=== PATIENT | female | born 1930 | race Caucasian/White ===

== ENCOUNTER → 2016-07-24 | Outpatient (CLI) | payer MEDICARE, BC ==
[~2016-07-24] MED LIST: ACETAMINOPHEN PO; ASPIRIN PO; BENADRYL PO; BONIVA150 MG PO; COUMADIN; COUMADIN PO; COUMADIN2.5 MG PO; COUMADIN5 MG PO; FOSAMAX70 MG PO; IMDUR-ER60 M3 PO; LASIX PO; LESCOL XL80 MG PO; LOVENOX; LUTEIN; METOPROLOL PO; MIACALCIN4 ML; MIDRIN CAPSULE1 CAP; PANTOPRAZOLE SO40 MG; PRAVASTATIN SOD40 MG PO; RANEXA500 MG PO; TOPROL XL; TOPROL XL PO; TYLENOL #3 PO; ZETIA
--- NOTE | ~2016-07-24 | MY11 ---
[facility] A Service of [facility] / [facility] RADIOLOGY TEXT RESULTS PATIENT: GABY LITTLE LOCATION: [facility] : [birth year] UNIT #: [id number] AGE: [address]: Kike Bynum MD SEX: F ORDER DR: [id number] [facility] [address] [place], [place] [address] [id number] O MR#: [id number] Acc #: [id number] NAME: GABY LITTLE : 1930 SEX: F STUDY DATE/TIME: 07/24/2016 11:23 UNIT: [facility] ROOM: STUDY DESCRIPTION: MY Mammogram Screening Dig [facility] Attending Physician: Kike Bynum Jr., M.D. Ordering Physician: Kike Bynum Jr., M.D. Primary Care Physician: Kike Bynum Jr., M.D. MEDICAL IMAGING REPORT This report is preliminary unless electronic signature is present EXAM Digital screening mammogram 07/24/2016, [facility]. HISTORY 85 year old woman, previous node biopsy right breast. No risk elevation. Annual screening. COMPARISON Comparison mammograms date to 01/15/2006 with most recent 05/11/2015. FINDINGS Digital imaging of each breast was completed utilizing screening protocol. Review includes FDA-approved CAD device. Breast parenchyma is predominantly fatty replaced with subareolar duct prominence again noted in each breast. Nodular opacity projecting upper outer quadrant right breast is stable. I see no suspicious mass characteristics and no suspicious microcalcifications. There is no architectural deformity. IMPRESSION Stable benign mammogram. Annual screening recommended. Patients over the age of 40 are entered into a reminder system with target due date for the next mammogram. A result letter will be sent to the patient. BIRADS: 2 Benign findings. Dictated by... Michael Bradshaw M.D. THIS IS AN ELECTRONICALLY VERIFIED REPORT Michael Bradshaw M.D. at 07/24/2016 3:31 PM DONNYB/erik [facility] A Service of [facility] / [facility] RADIOLOGY TEXT RESULTS PATIENT: GABY LITTLE LOCATION: [facility] : [birth year] UNIT #: [id number] AGE: [address]: Kike Bynum MD SEX: F ORDER DR: TD: 07/24/2016 14:36 JOB #: [id number] MEDICAL IMAGING REPORT COPY
== END | disposition home or self-care (01) ==
LOC: CWCC 10:55
DX: Z12.31 Encounter for screening mammogram for malignant neoplasm of breast (principal); Z98.890 Other specified postprocedural states
CPT/HCPCS: G0202

== ENCOUNTER → 2016-09-20 | Day surgery (SDC) | payer MEDICARE, BC ==
--- NOTE | ~2016-09-20 | OR ---
Unit #: [id number] #: [id number] Patient: GABY LITTLE [id number] [place] [id number] O MR#: [id number] NAME: GABY LITTLE ROOM: Date of Procedure: 09/20/2016 Admission Date: 09/20/2016 Surgeon: Terence Bacon M.D. : 1930 Attending Physician: Terence Bacon M.D. Primary Care Physician: Kike Bynum Jr., M.D. OPERATIVE REPORT PREOPERATIVE DIAGNOSES Dysphagia and dyspepsia. PROCEDURES PERFORMED 1. Upper gastrointestinal endoscopy and biopsy. 2. Upper gastrointestinal endoscopy and dilation with a TTS balloon. POSTOPERATIVE DIAGNOSES 1. The patient had distal esophageal stricture. This was classic benign stricture from reflux. It was dilated using an 18 to 20 mm TTS balloon. 2. Grade 2 distal erosive esophagitis. 3. Small hiatus hernia. 4. Mild prepyloric antral erosive gastritis. 5. Focal patchy erosive duodenitis. 6. Rest of examination up to third part of duodenum was normal. A biopsy was obtained from the antrum for CLOtest. RECOMMENDATIONS 1. The patient will be started on pantoprazole 40 mg p.o. daily. 2. Bridge dose of Lovenox was explained along with resumption of Coumadin tomorrow. She will be followed up in the office in 3 months' time. SEDATION USED MAC. DESCRIPTION OF PROCEDURE Following detailed explanation of the potential risks and complications of an upper endoscopy, namely perforation, bleeding, complication related to sedation, the patient was brought to GI lab, laid in the left lateral decubitus position. Lubricated tip of the Olympus video upper endoscope was passed through bite block into the proximal esophagus under direct vision. The entire esophageal mucosa was examined. The patient was noted to have distal esophageal benign stricture along with distal erosive esophagitis. The scope was then advanced in the gastric cavity after traversing a small hiatus hernia. Mucosa of the fundus, body, and antrum was examined. The patient was noted to have prepyloric antral erythema erosions, which was fairly diffuse indicating antral gastritis. Pylorus was intubated with visualization of the duodenal bulb. The latter was noted to have mild focal patchy erosive duodenitis. Second and third part of duodenum were normal. Upon withdrawal and retroflexion, incisura, cardia, and greater curve examined and biopsy obtained from the antrum for CLOtest. The scope was withdrawn in the distal esophagus. An 18 to 20 mm Unit #: [id number] #: [id number] Patient: GABY LITTLE A TTS balloon was passed through the accessory channel of the scope and step-up dilation of distal esophageal stricture was done. Minimal bleeding was noted. The area was thoroughly washed with water. Good hemostasis was achieved. The scope was then withdrawn all the way up to pharynx. No additional findings noted. The patient tolerated the procedure without any postprocedure complications. Dictated by... Mariya Almazan/judd TD: 09/20/2016 09:25 JOB #: [id number] CC: Kike Neal M.D. OPERATIVE REPORT Page 1 of 1 X Terence Bacon MD X PROCEDURE OPERATIVE NOTE
== END | disposition home or self-care (01) ==
LOC: COPS 06:06
DX: K22.2 Esophageal obstruction (principal); K21.0 Gastro-esophageal reflux disease with esophagitis; K44.9 Diaphragmatic hernia without obstruction or gangrene; K29.00 Acute gastritis without bleeding; K29.80 Duodenitis without bleeding; I25.10 Atherosclerotic heart disease of native coronary artery without angina pectoris; Z88.0 Allergy status to penicillin; Z88.2 Allergy status to sulfonamides; Z79.01 Long term (current) use of anticoagulants; Z79.02 Long term (current) use of antithrombotics/antiplatelets; Z79.82 Long term (current) use of aspirin; Z79.899 Other long term (current) drug therapy; Z95.2 Presence of prosthetic heart valve; Z95.1 Presence of aortocoronary bypass graft; Z90.710 Acquired absence of both cervix and uterus; Z98.890 Other specified postprocedural states
CPT/HCPCS: 87077; J3370